=== PATIENT | male | born 1940 | race Caucasian/White ===

== ENCOUNTER → 2019-04-07 | Outpatient (CLI) | payer MEDICARE | END | disposition home or self-care (01) | LOC: LABWHC1 16:48 | PROVIDERS: ATTEND Psychiatry & Neurology Neurology | DX: G95.9 Disease of spinal cord, unspecified (principal); G62.9 Polyneuropathy, unspecified; R53.1 Weakness | CPT/HCPCS: 36415; 82550; 82607; 85652; 86038 ==

== ENCOUNTER → 2019-04-24 | Outpatient (CLI) | payer MEDICARE ==
[2019-04-24 12:05] LABS: Basophils % (A) 0 %; Eosinophils # (A) 0.1 k/uL (0-0.7); Eosinophils % (A) 1 %; HGB 18.1 gm/dL (13.0-17.5); Lymphocytes % (A) 6 %; MCH 31.5 pg (25.0-35.0); MCHC 31.8 g/dL (31.0-37.0); MCV 98.9 fL (80.0-100.0); Mean Platelet Volume 7.3; Monocytes # (A) 0.8 k/uL (0-1.0); Monocytes % (A) 5 %; Neutrophils # (A) 15.4 k/uL (1.3-7.7); Neutrophils % (A) 88 %; Platelet Count 122 k/uL (150-450); RBC 5.76 m/uL (4.30-5.90); RDW 13.8 % (11.5-15.5); WBC 17.6 k/uL (3.8-10.6)
[2019-04-24 12:22] LABS: Calcium 9.6 mg/dL (8.4-10.2); Potassium 4.5 mmol/L (3.5-5.1)
[2019-04-24 12:42] LABS: Mucus,Urine Rare /hpf; RBC,Urine 4 /hpf (0-5); Squamous Epithelial Cell,Urine 1 /hpf (0-4); WBC,Urine 1 /hpf (0-5)
[2019-04-24 12:43] LABS: Appearance,Urine Clear (Clear); Color,Urine Yellow
[2019-04-24 12:44] LABS: Protein,Urine 1+ (Negative)
[2019-04-24 12:47] LABS: Bilirubin,Urine Negative (Negative); Glucose,Urine (UA) Negative (Negative); Ketones,Urine Negative (Negative)
[2019-04-24 12:48] LABS: Blood,Urine Small (Negative); Leukocyte Esterase,Urine Negative (Negative); Nitrite,Urine Negative (Negative)
== END | disposition home or self-care (01) ==
LOC: LABPAT 11:11
PROVIDERS: ATTEND Orthopaedic Surgery Orthopaedic Surgery of the Spine
DX: Z01.812 Encounter for preprocedural laboratory examination (principal); G95.89 Other specified diseases of spinal cord
CPT/HCPCS: 36415; 80048; 81001; 85025; 85610; 85730

== ENCOUNTER → 2019-04-26 | Outpatient (CLI) | payer MEDICARE ==
--- NOTE | 2019-04-26 15:06 | XR ---
EXAMINATION TYPE: XR chest 2V DATE OF EXAM: 04/26/2019 COMPARISON: None INDICATION: Cough congestion short of breath TECHNIQUE: Frontal and lateral views of the chest are obtained. FINDINGS: The heart size is normal. The pulmonary vasculature is normal. The lungs are clear. There is some hyperinflation present. Correlate for COPD. IMPRESSION: 1. No acute pulmonary process. 2. COPD
== END | disposition home or self-care (01) ==
LOC: RADXRMAIN 14:35
PROVIDERS: ATTEND Family Medicine
DX: J44.9 Chronic obstructive pulmonary disease, unspecified (principal); J11.82 Influenza due to unidentified influenza virus with myocarditis
CPT/HCPCS: 71046

== ENCOUNTER → 2019-05-12 | Outpatient (CLI) | payer MEDICARE ==
--- NOTE | 2019-05-12 13:48 | XR ---
EXAMINATION TYPE: XR chest 2V DATE OF EXAM: 05/12/2019 COMPARISON: 04/26/2019 HISTORY: Presurgical examination TECHNIQUE: Frontal and lateral views of the chest are obtained. FINDINGS: There is no focal air space opacity, pleural effusion, or pneumothorax seen. Finding of t he diaphragms on the lateral view suggesting underlying COPD. The cardiac silhouette size is within n ormal limits. Diffuse osseous demineralization. The osseous structures are intact. Moderate multilev el degenerative change of the spine. IMPRESSION: No acute cardiopulmonary process. Findings suggesting underlying COPD.
[2019-05-12 14:51] LABS: Appearance,Urine Clear (Clear); Bilirubin,Urine Negative (Negative); Blood,Urine Negative (Negative); Color,Urine Yellow; Glucose,Urine (UA) Negative (Negative); Hyaline Casts,Urine 1 /lpf (0-2); Ketones,Urine Negative (Negative); Leukocyte Esterase,Urine Trace (Negative); Mucus,Urine Rare /hpf; Nitrite,Urine Negative (Negative); PH, Urine 5.5 (5.0-8.0); Protein,Urine Negative (Negative); RBC,Urine <1 /hpf (0-5); Specific Gravity,Urine 1.015 (1.001-1.035); Urobilinogen,Urine <2.0 mg/dL (<2.0); WBC,Urine 1 /hpf (0-5)
[2019-05-12 15:24] LABS: INR 1.1 (<1.2); Prothrombin Time 11.5 sec (9.0-12.0)
[2019-05-12 15:25] LABS: Calcium 9.8 mg/dL (8.4-10.2); Partial Thromboplastin Time 27.8 sec (22.0-30.0); Potassium 4.8 mmol/L (3.5-5.1)
[2019-05-12 15:27] LABS: Basophils % (A) 0 %; Eosinophils # (A) 0.1 k/uL (0-0.7); Eosinophils % (A) 2 %; HCT 53.4 % (39.0-53.0); HGB 17.7 gm/dL (13.0-17.5); Lymphocytes # (A) 1.6 k/uL (1.0-4.8); Lymphocytes % (A) 21 %; MCH 32.1 pg (25.0-35.0); MCHC 33.1 g/dL (31.0-37.0); Mean Platelet Volume 7.2; Monocytes # (A) 0.6 k/uL (0-1.0); Monocytes % (A) 7 %; Neutrophils # (A) 5.3 k/uL (1.3-7.7); Neutrophils % (A) 68 %; RBC 5.51 m/uL (4.30-5.90); RDW 13.5 % (11.5-15.5); WBC 7.8 k/uL (3.8-10.6)
[2019-05-12 15:33] LABS: Platelet Count 192 k/uL (150-450)
== END | disposition home or self-care (01) ==
LOC: RADXRMAIN 13:16
PROVIDERS: ATTEND Family Medicine
DX: J11.1 Influenza due to unidentified influenza virus with other respiratory manifestations (principal); Z01.812 Encounter for preprocedural laboratory examination; D72.829 Elevated white blood cell count, unspecified
CPT/HCPCS: 71046; 80048; 81001; 83615; 85025; 85610; 85730; 87086

== ENCOUNTER 2019-05-17 08:39 | Day surgery (SDC) | payer MEDICARE ==
[2019-05-15 15:12] VITALS: BMI 26.6
[~2019-05-17 08:39] MED LIST: BACITRACIN 50,000 UNIT, POLYMYXIN B 500,000 UNIT in SODIUM CHLORIDE 0.9% IRRIGATIO 1,00... IRRIGATION ONE; DEXAMETHASONE SOD PHOSPHATE 10 MG/ML 1 ML VIAL IV ONE; HYDROmorphone 0.5 MG/0.5 ML SYRINGE IVP PRN; LIDOCAINE 1% (10MG/ML) FOR IV START INTRADERMA PRN; MIDAZOLAM 2 MG/2 ML VIAL IV PRN; ONDANSETRON 4 MG/2 ML VIAL IVP ONE; SCOPOLAMINE 1.5MG/72HR PATCH TRANSDERM ONE
[2019-05-17] MEDS: LACTATED RINGERS 1,000 ML IV SCH (10:06)
[2019-05-17] MEDS ORDERED: SUCCINYLCHOLINE CHLORIDE 100 MG/5 ML SYR IV ONE (11:58)
[2019-05-17] MEDS ORDERED: LIDOCAINE 1% INJ 10MG/ML (20 ML MDV) ONE (11:58)
[2019-05-17] MEDS ORDERED: PROPOFOL 10 MG/ML 20 ML VIAL IV ONE (11:58)
[2019-05-17] MEDS ORDERED: DEXAMETHASONE SOD PHOS (MDV) 100 MG/10 ML VIAL ONE (11:58)
[2019-05-17] MEDS ORDERED: fentaNYL (PF) 50 MCG/ML 2 ML AMP ONE (11:58)
[2019-05-17] MEDS ORDERED: ONDANSETRON 4 MG/2 ML VIAL ONE (11:58)
[2019-05-17] MEDS ORDERED: ePHEDrine SULFATE/0.9% NACL/PF 50 MG/5 ML SYRINGE IV ONE (11:58)
[2019-05-17] MEDS ORDERED: LIDOCAINE 2%-EPI 1:100,000 20 ML VIAL SQ ONE ×3 (12:30)
[2019-05-17] MEDS ORDERED: BUPIVACAINE (PF) 0.5% 30 ML VIAL SQ ONE ×3 (12:30)
[2019-05-17] MEDS ORDERED: THROMBIN (BOVINE) 5,000 UNIT VIAL TOPICAL ONE (12:30)
[2019-05-17] MEDS ORDERED: GELATIN SPONGE,ABSORB (SMALL) 1 EACH SPONGE TOPICAL ONE (12:30)
--- NOTE | 2019-05-17 13:09 | XR ---
EXAMINATION TYPE: XR cervical spine 1V DATE OF EXAM: 05/17/2019 COMPARISON: NONE HISTORY: Needle placement TECHNIQUE: Single crosstable lateral intraoperative view was performed FINDINGS/IMPRESSION: There is needle localization of the inferior endplate of C4 just above the C4-C5 intervertebral disc space. Patient is intubated. Severe degenerative change of the cervical spine is partially visualized.
[2019-05-17] MEDS ORDERED: LACTATED RINGERS 1,000 ML IV ONE (13:31)
--- NOTE | 2019-05-17 14:10 | XR ---
EXAMINATION TYPE: XR cervical spine 1V DATE OF EXAM: 05/17/2019 COMPARISON: NONE HISTORY: Hardware placement TECHNIQUE: Single crosstable lateral intraoperative view was performed FINDINGS/IMPRESSION: Interval anterior cervical fusion plate has been placed at C3-C5 with interverte bral disc cages. Severe multilevel degenerative disc disease of the cervical spine is again seen. Pos tsurgical prevertebral soft tissue swelling is present and the patient is intubated.
[2019-05-17] MEDS ORDERED: BENZOCAINE/MENTHOL LOZENG 1 EACH LOZENGE MUCOUS MEM PRN (14:23)
[2019-05-17] MEDS ORDERED: ACETAMINOPHEN TAB 325 MG TAB PO PRN (14:23)
[2019-05-17] MEDS ORDERED: HYDROcodone/APAP 5-325MG 1 EACH TAB PO PRN (14:23)
[2019-05-17] MEDS ORDERED: HYDROmorphone 0.5 MG/0.5 ML SYRINGE IVP PRN (14:23)
--- NOTE | 2019-05-17 14:30 | P.OP ---
Date of Procedure: 05/17/19 Preoperative Diagnosis: Cervical myelopathy, severe cervical stenosis C3 4 C4 5, cervical myelomalacia, upper extremity weakness, upper extremity radiculopathy, degenerative disc disease Postoperative Diagnosis: Same Anesthesia: GETA Pathology: none sent Condition: stable Disposition: PACU Description of Procedure: BRIEF OPERATIVE NOTE Preoperative Diagnosis:Cervical myelopathy, severe cervical stenosis C3 4 C4 5, cervical myelomalacia, upper extremity weakness, upper extremity radiculopathy, degenerative disc disease Postoperative Diagnosis:Cervical myelopathy, severe cervical stenosis C3 4 C4 5, cervical myelomalacia, upper extremity weakness, upper extremity radiculopathy, degenerative disc disease Procedure: Anterior cervical decompression with discectomy and fusion C3 4 and C4 5 Removal of large anterior osteophytes Placement of interbody graftC3 4 C4 5 Application of anterior cervical plate C3 4 5 Surgeon: Dr. Palmer Hobber: Jamel MARTINEZ who is present throughout the entire the case persistence during positioning, dissection, exposure, visualization, and all crucial elements of the case as well as closure. Anesthesia: General anesthesia Estimated blood loss: approximately 50 mL Complications: None apparent Components implanted: K2M [place] anterior cervical plate system with screws and Vikos interbody allograft bone graft Disposition: To recovery room in good stable condition. OPERATIVE INDICATIONS The patient has had long-standing issues in their neck and upper extremities. over the past several years he has been having some issues with his upper extremities feeling some sensations of weakness but had not had any aggressive treatment. The patient was having worsening of his issues with weakness in his upper extremity as well as some difficulty with his mobilization ambulation. He had some evidence of cervical myelopathy and had further evaluation with imaging. His MRI imaging showed severe cervical stenosis with changes in his spinal cord with myelomalacia I correlated well with his neck and upper extremity symptoms as well as his myelopathic issues. The patient is having worsening despite conservative treatment. The patient has been through conservative treatment. given the severity of his myelomalacia and stenosis was somewhat likely that the patient would have long-term if not permanent deficits from his spinal cord. We discussed various treatment options including surgery, and the patient wishes to proceed with surgery We discussed the risk, patient's alternatives and benefits of surgery including but not limited to, risk of bleeding risk of infection, risk of need for further surgery, risk of decreased, loss of motion, muscle function, malunion nonunion, hardware failure, nerve damage, paralysis, heart attack, and . OPERATIVE SUMMARY After discussing all the risks, patient alternatives and benefits at length, the patient elected to proceed with surgical intervention, signed informed consent, and presented for their procedure. The patient was seen and examined in the preoperative holding area and the surgical site was marked. The patient was given antibiotics and brought to the operating room. The patient was positioned on the operating room table in a supine position being careful to pad any bony prominences and pressure points. The patient was sedated and intubated by anesthesia in standard fashion. Once the airway and C- spine were stabilized the patient's arms were padded and tucked at her side, with her shoulders gently taped. The head was placed in a donut pad with the neck in good neutral alignment and position. We were careful to maintain the patient's cervical spine and good neutral alignment and position throughout. The patient was prepped and draped in a normal standard fashion. An appropriate timeout and keystone protocol performed. We were able to proceed with the surgery. The local wound area was infiltrated with local anesthetic. An incision was made transversely approximately 2-1/2 cm over the appropriate levels at C4 . Dissection was taken down subcutaneously to the level of the platysma which was split in line with its fibers. Dissection was taken with a carotid approach, with the trachea and esophagus medial and the carotid sheath laterally. We dissected down to the anterior surface of the vertebral bodies. Intraoperative x-ray was taken which showed a marker at the appropriate level of the vertebral body of C4 . With the appropriate level positively confirmed, we were able to proceed with discectomy at the appropriate levels starting at C45 and then removing the C3 4 . All of the operative levels were exposed appropriately. The patient had all their twitches back, and there was no evidence of recurrent laryngeal issue. The wound was copiously irrigated and suctioned dry as had been done periodically throughout the case. there were large anterior cervical osteophytes which had removed particular at C4 5. At the appropriate level/levels of C4 5 and then C3 4, I established an annulotomy with an 11 blade scalpel. A discectomy was performed with a combination of pituitary rongeurs, curettes, a high-speed bur, and Kerrison rongeurs. there was severe's disc degeneration at these levels. The posterior longitudinal ligament was taken down as were any posterior osteophytes. there had been severe stenosis which was remedied with the decompression and discectomy. This gave good central and bilateral foraminal decompression. There is no evidence of any dural tear or leak. The endplates were prepared with a high-speed bur. With the endplates in good parallel position, I was able to size for the appropriate size interbody graft. The wound was irrigated and suctioned dry the graft was prepared and malleted into position. It had good alignment and position with the anterior surface flush with the anterior surface of the vertebral bodies. This was done similarly the appropriate levels first at C4 5 and then at C3 4 . With the grafts intact, I was able to measure and contour and appropriate sized plate. The plate was positioned at the midline over the appropriate levels at C3 4 and 5 . Screw holes were established with a hand drill and drill guide. Screws were placed in good alignment and position with excellent bony purchase. They were seated under the locking device. The construct was checked and found to be stable. Intraoperative x-ray was taken which showed good alignment and position of the implants at the appropriate levels of C3 4 and 5 . There was no evidence of any dural tear or leak. Good hemostasis was maintained. The wound was copiously irrigated and suctioned dry as had been done periodically throughout the case. The platysma was closed with absorbable suture. The subcutaneous tissue was closed. The subcuticular tissue was closed with absorbable suture. The wound was cleaned and dried and dressed appropriately. A soft cervical collar was placed appropriately. The patient was woken up by anesthesia, extubated, transferred back gently to their hospital bed and brought to the recovery room in good stable condition. The patient will be admitted to the hospital for appropriate postoperative care, medical management and monitoring. We will continue to follow them closely about the postoperative course.
[2019-05-17] MEDS: ONDANSETRON 4 MG/2 ML VIAL IVP PRN (18:32)
[2019-05-17] MEDS: SODIUM CHLORIDE 0.9% 1,000 ML IV SCH (19:25)
[2019-05-17] MEDS: SYMBICORT 160-4.5 MCG INHALER INHALATION SCH (20:15)
[2019-05-17] MEDS ORDERED: SERTRALINE 25 MG TAB PO SCH (21:00)
[2019-05-17] MEDS ORDERED: ATORVASTATIN 10 MG TAB PO SCH (21:00)
[2019-05-18] MEDS: SODIUM CHLORIDE 0.9% 1,000 ML IV SCH (04:14)
[2019-05-18] MEDS: ONDANSETRON 4 MG/2 ML VIAL IVP PRN (04:18)
[2019-05-18] MEDS: LACTATED RINGERS 1,000 ML IV SCH (04:22)
[2019-05-18 07:54] VITALS: BP 127/82; PULSE 84; RESP 16; TEMP 98.2
--- NOTE | 2019-05-18 08:02 | P.DS ---
Providers Date of admission: 05/17/19 Attending physician: Munir Palmer Primary care physician: Vanessa [facility] Course: The patient presented on the day of admission as per their operative note. He has significant cervical myelopathy due to his severe stenosis C3 4 C4 5 and underwent anterior cervical decompression with discectomy and fusion C3 4 C4 5 as is operative note states. He says today his shoulders are feeling better. He has been able to get up slightly to the bathroom. He has been voiding freely. He was able to eat last night but did have nausea last night. He says his nausea is resolving this morning. Physical Exam The incision site is clean dry and intact. There is no erythema no drainage. There is no purulence no evidence of infection. He has bruising around the base of his neck which is to be expected. His neck is soft and supple. There is no significant swelling. There is no active drainage at the incision site. Abdomen soft and nontender. Chest has good excursion with deep inspiration and expiration. The patient has active and passive range of motion intact at the upper and lower extremities. There is no acute change in neurologic status. He has use of his hands is moving his arms appropriately. Hospital Course Postoperative day #1 status post anterior cervical decompression with discectomy and fusion C3 4 C4 5 for severe cervical stenosis with cervical myelopathy and myelomalacia with upper extremity radiculopathy and weakness The patient is making progress postoperatively and he feels his shoulders are improving terms of their overall sensation. He feels his motion is adequate and desired. He has not had neurologic loss. The patient has been making good progress postoperatively. The surgical site has some bruising but there is no active drainage and appears to be stable without any significant concern. They have completed the prophylactic antibiotics without any signs or symptoms of infection. The patient has been able to advance their diet, and is tolerating diet adequately. The pain was initially controlled with IV medications and is now controlled appropriately with oral medications. The patient has been able to increase their mobilization. The patient has progressed appropriately. I think they are in good stable condition for discharge today. They will be sent home with appropriate prescriptions. I answered their questions to the best of my ability in a la nguage that they can understand and they are agreeable with the plan. They will follow up as directed In approximately 2 weeks or sooner if he is having problems. Patient Condition at Discharge: Fair Plan - Discharge Summary Discharge Rx Participant: Yes New Discharge Prescriptions: New HYDROcodone/APAP 5-325MG [[place] 5] 1 each PO Q6HR PRN #12 tab PRN Reason: Pain No Action Fluticasone/Salmeterol [Advair 500-50 Diskus] 1 inhalation PO BID Aspirin 0.5 tab PO DAILY Sertraline [Zoloft] 25 mg PO HS Finasteride [Proscar] 5 mg PO DAILY@1200 Cholecalciferol [Vitamin D3 (25 Mcg = 1000 Iu)] 1,000 unit PO DAILY Atorvastatin [Lipitor] 10 mg PO HS Fish Oil/Dha/Epa [Fish Oil 1,200 mg Fish Oil] 1 each PO DAILY Cyanocobalamin (Vitamin B-12) [Vitamin B-12] 1,000 mcg PO MO Discharge Medication List Aspirin 0.5 tab PO DAILY 04/24/19 [History] Atorvastatin [Lipitor] 10 mg PO HS 04/24/19 [History] Cholecalciferol [Vitamin D3 (25 Mcg = 1000 Iu)] 1,000 unit PO DAILY 04/24/19 [History] Cyanocobalamin (Vitamin B-12) [Vitamin B-12] 1,000 mcg PO MO 04/24/19 [History] Finasteride [Proscar] 5 mg PO DAILY@1200 04/24/19 [History] Fish Oil/Dha/Epa [Fish Oil 1,200 mg Fish Oil] 1 each PO DAILY 04/24/19 [History] Fluticasone/Salmeterol [Advair 500-50 Diskus] 1 inhalation PO BID 04/24/19 [History] Sertraline [Zoloft] 25 mg PO HS 04/24/19 [History] HYDROcodone/APAP 5-325MG [[place] 5] 1 each PO Q6HR PRN #12 tab 05/18/19 [Rx] Follow up Appointment(s)/Referral(s): Munir Palmer DO [Doctor of Osteopathic Medicine] - 2 Weeks Activity/Diet/Wound Care/Special Instructions: Keep site clean. May shower with waterproof Tegaderm intact. Do not soak in a tub. After 72 hours postoperatively, patient May remove dressing and then may shower with area uncovered. Leave Steri-Strips intact and allow them to fray off on their own. May ambulate as tolerated. Avoid heavy or rigorous activity. No repetitive bending twisting or lifting. No overhead work.
[2019-05-18] MEDS: SYMBICORT 160-4.5 MCG INHALER INHALATION SCH (08:07)
[2019-05-18] MEDS ORDERED: NON FORMULARY DRUG (Fish Oil/Dha/Epa [Fish Oil 1,200 Mg Fish Oil] 1 EACH) PO SCH (09:00)
[2019-05-18] MEDS ORDERED: ASPIRIN 325 MG TAB PO SCH (09:00)
[2019-05-18] MEDS ORDERED: SENNOSIDES-DOCUSATE SODIUM 1 EACH TAB PO SCH (09:00)
[2019-05-18] MEDS ORDERED: CHOLECALCIFEROL 1,000 UNIT TAB PO SCH (09:00)
[2019-05-18] MEDS ORDERED: FINASTERIDE 5 MG TAB PO SCH (12:00)
[2019-05-22] MEDS ORDERED: CYANOCOBALAMIN 500 MCG TAB PO SCH (12:00)
== END 2019-05-18 11:02 | disposition home or self-care (01) ==
LOC: OR 08:39 → 4SSUR 14:21 → OR 05-18 11:02
PROVIDERS: ATTEND Orthopaedic Surgery Orthopaedic Surgery of the Spine
DX: M50.01 Cervical disc disorder with myelopathy, high cervical region (principal); M50.11 Cervical disc disorder with radiculopathy, high cervical region; M48.02 Spinal stenosis, cervical region; M25.78 Osteophyte, vertebrae; M51.37 Other intervertebral disc degeneration, lumbosacral region; M43.16 Spondylolisthesis, lumbar region; G95.89 Other specified diseases of spinal cord; E66.3 Overweight; M16.11 Unilateral primary osteoarthritis, right hip; I25.10 Atherosclerotic heart disease of native coronary artery without angina pectoris; J43.9 Emphysema, unspecified; E78.5 Hyperlipidemia, unspecified; F17.210 Nicotine dependence, cigarettes, uncomplicated; Z79.51 Long term (current) use of inhaled steroids; Z79.82 Long term (current) use of aspirin; Z79.899 Other long term (current) drug therapy; Z88.8 Allergy status to other drugs, medicaments and biological substances; Z97.3 Presence of spectacles and contact lenses; Z68.27 Body mass index [BMI] 27.0-27.9, adult; Z82.49 Family history of ischemic heart disease and other diseases of the circulatory system; Z83.3 Family history of diabetes mellitus
CPT/HCPCS: 94640 ×2; 86900; 86901; 86850; 72020; 22551; 22552; 22853 ×2; 22845; 22110; 22116; C1713 ×2; C1762 ×2; J0690 ×2; J2405 ×2

== ENCOUNTER 2019-08-03 20:34 | Emergency (ER) | payer MEDICARE ==
[2019-08-03 21:49] LABS: Basophils % (A) 1 %; Eosinophils # (A) 0.2 k/uL (0-0.7); Eosinophils % (A) 2 %; HGB 17.7 gm/dL (13.0-17.5); Lymphocytes # (A) 1.8 k/uL (1.0-4.8); Lymphocytes % (A) 24 %; MCH 31.3 pg (25.0-35.0); MCHC 32.1 g/dL (31.0-37.0); MCV 97.5 fL (80.0-100.0); Mean Platelet Volume 7.7; Monocytes # (A) 0.6 k/uL (0-1.0); Monocytes % (A) 8 %; Neutrophils # (A) 4.8 k/uL (1.3-7.7); Neutrophils % (A) 64 %; Platelet Count 129 k/uL (150-450); RBC 5.65 m/uL (4.30-5.90); RDW 14.1 % (11.5-15.5); WBC 7.5 k/uL (3.8-10.6)
--- NOTE | 2019-08-03 21:49 | ED ---
General Adult HPI - General Chief complaint: Extremity Injury, Lower Stated complaint: Feet Swelling Time Seen by Provider: 08/03/19 20:45 Source: patient, RN notes reviewed, old records reviewed Mode of arrival: wheelchair Limitations: no limitations - History of Present Illness Initial comments: Patient is a pleasant 78-year-old male who presents emergency Department today with complaints of lower feet swelling worsening over the past 2 weeks. He d oes report that his left leg is more swollen. He reports that he's had no significant shortness of breath. He denies any chest pain. He does report Surgery in May and has a more sedentary. He has no history of blood clots. - Related Data Home Medications Medication Instructions Recorded Confirmed Aspirin 0.5 tab PO DAILY 04/24/19 05/17/19 Atorvastatin [Lipitor] 10 mg PO HS 04/24/19 05/17/19 Cholecalciferol [Vitamin D3 (25 1,000 unit PO DAILY 04/24/19 05/17/19 Mcg = 1000 Iu)] Cyanocobalamin (Vitamin B-12) 1,000 mcg PO MO 04/24/19 05/17/19 [Vitamin B-12] Finasteride [Proscar] 5 mg PO DAILY@1200 04/24/19 05/17/19 Fish Oil/Dha/Epa [Fish Oil 1,200 1 each PO DAILY 04/24/19 05/17/19 mg Fish Oil] Fluticasone/Salmeterol [Advair 1 inhalation PO BID 04/24/19 05/17/19 500-50 Diskus] Sertraline [Zoloft] 25 mg PO HS 04/24/19 05/17/19 Previous Rx's Medication Instructions Recorded HYDROcodone/APAP 5-325MG [[place] 5] 1 each PO Q6HR PRN #12 tab 05/18/19 Furosemide [Lasix] 20 mg PO DAILY #5 tab 08/03/19 Allergies Allergy/AdvReac Type Severity Reaction Status Date / Time difluprednate [From Durezol] Allergy increased Verified 08/03/19 20:41 pressure Review of Systems ROS Statement: Those systems with pertinent positive or pertinent negative responses have been documented in the HPI. ROS Other: All systems not noted in ROS Statement are negative. Past Medical History Past Medical History: COPD, Hyperlipidemia, Prostate Disorder History of Any Multi-Drug Resistant Organisms: None Reported Past Surgical History: Appendectomy, Orthopedic Surgery, Prostate Surgery Additional Past Surgical History / Comment(s): neck surgery, Past Psychological History: No Psychological Hx Reported Smoking Status: Current every day smoker Past Alcohol Use History: Rare Past Drug Use History: None Reported General Exam - General Exam Comments Initial Comments: 78 year old male. Limitations: no limitations General appearance: alert, in no apparent distress Head exam: Present: atraumatic, normocephalic, normal inspection Eye exam: Present: normal appearance, PERRL, EOMI. Absent: scleral icterus, conjunctival injection, periorbital swelling ENT exam: Present: normal exam, mucous membranes moist Neck exam: Present: normal inspection. Absent: tenderness, meningismus, lymphadenopathy Respiratory exam: Present: normal lung sounds bilaterally. Absent: respiratory distress, wheezes, rales, rhonchi, stridor Cardiovascular Exam: Present: regular rate, normal rhythm, normal heart sounds. Absent: systolic murmur, diastolic murmur, rubs, gallop, clicks GI/Abdominal exam: Present: soft, normal bowel sounds. Absent: distended, tenderness, guarding, rebound, rigid Extremities exam: Present: normal inspection, full ROM, normal capillary refill, other (left lower extremity swelling ). Absent: tenderness, pedal edema, joint swelling, calf tenderness Back exam: Present: normal inspection, full ROM Neurological exam: Present: alert, oriented X3, CN II-XII intact Psychiatric exam: Present: normal affect, normal mood Skin exam: Present: warm, dry, intact, normal color. Absent: rash Course Vital Signs 08/03/19 20:35 Temperature 98.3 F Pulse Rate 72 Respiratory 18 Rate Blood Pressure 170/88 O2 Sat by Pulse 98 Oximetry Medical Decision Making - Medical Decision Making 78-year-old male presents emergency Department today with 2 weeks of peripheral edema. Has been more sedentary. He does have pitting edema bilaterally worseni ng over the left leg. Normal pulses distally. Denies any shortness of breath or chest pain. Patient's labs are reviewed. Negative troponin. BNP and CMP are unremarkable. Chest x-rays negative for pleural fusion and DVT was not detected on Doppler ultrasound. At this time Patient will be discharged with prescription for JACKELYN anderson advised to follow-up with , mainly concern for lower extremity edema is related to venous insufficiency. I did discuss all CT using a short dose of Lasix to help with fluid overload. Patient is agreeable to treatment plan will comply. - Lab Data Result diagrams: 08/03/19 21:38 08/03/19 21:38 Lab Results 08/03/19 08/03/19 08/03/19 Range/Units 21:38 21:38 21:38 WBC 7.5 (3.8-10.6) k/uL RBC 5.65 (4.30-5.90) m/uL Hgb 17.7 H (13.0-17.5) gm/dL Hct 55.1 H (39.0-53.0) % MCV 97.5 (80.0-100.0) fL MCH 31.3 (25.0-35.0) pg MCHC 32.1 (31.0-37.0) g/dL RDW 14.1 (11.5-15.5) % Plt Count 129 L (150-450) k/uL Neutrophils % 64 % Lymphocytes % 24 % Monocytes % 8 % Eosinophils % 2 % Basophils % 1 % Neutrophils # 4.8 (1.3-7.7) k/uL Lymphocytes # 1.8 (1.0-4.8) k/uL Monocytes # 0.6 (0-1.0) k/uL Eosinophils # 0.2 (0-0.7) k/uL Basophils # 0.0 (0-0.2) k/uL PT 11.6 (9.0-12.0) sec INR 1.1 (<1.2) APTT 27.3 (22.0-30.0) sec Sodium 138 (137-145) mmol/L Potassium 4.4 (3.5-5.1) mmol/L Chloride 108 H (98-107) mmol/L Carbon Dioxide 23 (22-30) mmol/L Anion Gap 7 mmol/L BUN 14 (9-20) mg/dL Creatinine 0.73 (0.66-1.25) mg/dL Est GFR (CKD-EPI)AfAm >90 (>60 ml/min/1.73 sqM) Est GFR (CKD-EPI)NonAf 90 (>60 ml/min/1.73 sqM) Glucose 90 (74-99) mg/dL Plasma Lactic Acid Lai (0.7-2.0) mmol/L Calcium 9.9 (8.4-10.2) mg/dL Magnesium 2.1 (1.6-2.3) mg/dL Total Bilirubin 0.7 (0.2-1.3) mg/dL AST 27 (17-59) U/L ALT 18 (4-49) U/L Alkaline Phosphatase 70 (38-126) U/L Troponin I (0.000-0.034) ng/mL NT-Pro-B Natriuret Pep pg/mL Total Protein 6.9 (6.3-8.2) g/dL Albumin 4.1 (3.5-5.0) g/dL 08/03/19 08/03/19 08/03/19 Range/Units 21:38 21:38 21:38 WBC (3.8-10.6) k/uL RBC (4.30-5.90) m/uL Hgb (13.0-17.5) gm/dL Hct (39.0-53.0) % MCV (80.0-100.0) fL MCH (25.0-35.0) pg MCHC (31.0-37.0) g/dL RDW (11.5-15.5) % Plt Count (150-450) k/uL Neutrophils % % Lymphocytes % % Monocytes % % Eosinophils % % Basophils % % Neutrophils # (1.3-7.7) k/uL Lymphocytes # (1.0-4.8) k/uL Monocytes # (0-1.0) k/uL Eosinophils # (0-0.7) k/uL Basophils # (0-0.2) k/uL PT (9.0-12.0) sec INR (<1.2) APTT (22.0-30.0) sec Sodium (137-145) mmol/L Potassium (3.5-5.1) mmol/L Chloride (98-107) mmol/L Carbon Dioxide (22-30) mmol/L Anion Gap mmol/L BUN (9-20) mg/dL Creatinine (0.66-1.25) mg/dL Est GFR (CKD-EPI)AfAm (>60 ml/min/1.73 sqM) Est GFR (CKD-EPI)NonAf (>60 ml/min/1.73 sqM) Glucose (74-99) mg/dL Plasma Lactic Acid Lai 0.7 (0.7-2.0) mmol/L Calcium (8.4-10.2) mg/dL Magnesium (1.6-2.3) mg/dL Total Bilirubin (0.2-1.3) mg/dL AST (17-59) U/L ALT (4-49) U/L Alkaline Phosphatase (38-126) U/L Troponin I 0.020 (0.000-0.034) ng/mL NT-Pro-B Natriuret Pep 483 pg/mL Total Protein (6.3-8.2) g/dL Albumin (3.5-5.0) g/dL 08/03/19 22:05 EKG showed bradycardia ventricular arrhythmia. Inferior infarct age undetermined. Ventricular rate of 57 bpm. NM interval is 152 ms. Respiration is 98 ms. QT QTc is 402/391 ms. - Radiology Data Radiology results: report reviewed Doppler ultrasound was negative for DVT. Chest x-ray is negative for cardiomegaly or pleural effusion. Disposition Clinical Impression: Peripheral edema, Venous insufficiency Disposition: HOME SELF-CARE Condition: Good Instructions (If sedation given, give patient instructions): Leg Edema (ED) Additional Instructions: Patient advised to follow-up with your primary care physician. Patient should use compression stockings as well as using the short course of diuretic medication. Return to the ED if any alarming signs or symptoms occur. Prescriptions: Furosemide [Lasix] 20 mg PO DAILY #5 tab Is patient prescribed a controlled substance at d/c from ED?: No Referrals: Vanessa Ferrer MD [Primary Care Provider] - 1-2 days Time of Disposition: 23:40
[2019-08-03 21:53] LABS: HCT 55.1 % (39.0-53.0)
[2019-08-03 21:58] LABS: ALT 18 U/L (4-49); AST 27 U/L (17-59); African American GFR (CKD) >90 (>60 ml/min/1.73 sqM); Albumin 4.1 g/dL (3.5-5.0); Alkaline Phosphatase 70 U/L (38-126); Anion Gap 7 mmol/L; Blood Urea Nitrogen 14 mg/dL (9-20); Calcium 9.9 mg/dL (8.4-10.2); Carbon Dioxide 23 mmol/L (22-30); Chloride 108 mmol/L (98-107); Glucose 90 mg/dL (74-99); Magnesium 2.1 mg/dL (1.6-2.3); Non-African American GFR(CKD) 90 (>60 ml/min/1.73 sqM); Potassium 4.4 mmol/L (3.5-5.1); Sodium 138 mmol/L (137-145); Total Bilirubin 0.7 mg/dL (0.2-1.3); Total Protein 6.9 g/dL (6.3-8.2)
[2019-08-03 22:11] LABS: INR 1.1 (<1.2); Partial Thromboplastin Time 27.3 sec (22.0-30.0); Prothrombin Time 11.6 sec (9.0-12.0)
--- NOTE | 2019-08-03 22:37 | US ---
EXAMINATION TYPE: US venous doppler duplex LE LT DATE OF EXAM: 08/03/2019 10:30 PM COMPARISON: NONE CLINICAL HISTORY: edema. Edema left leg x 2 weeks. No hx of DVT. Patient takes aspirin. SIDE PERFORMED: Left TECHNIQUE: The lower extremity deep venous system is examined utilizing real time linear array sonog pipe with graded compression, doppler sonography and color-flow sonography. VESSELS IMAGED: External Iliac Vein (EIV) Common Femoral Vein Deep Femoral Vein Greater Saphenous Vein * Femoral Vein Popliteal Vein Small Saphenous Vein * Proximal Calf Veins (* superficial vessels) Left Leg: No evidence of DVT in veins imaged at this time from prox calf veins to EIV. There appear to be branches of deep femoral vein. Appear compressible. IMPRESSION: No sign of deep vein thrombosis in the left leg.
--- NOTE | 2019-08-03 22:51 | XR ---
EXAMINATION TYPE: XR chest 2V DATE OF EXAM: 08/03/2019 COMPARISON: 05/12/2019 HISTORY: Difficulty breathing TECHNIQUE: FINDINGS: Heart is normal. Lungs are clear of infiltrate. There is mild pulmonary hyperinflation. Tho racic aorta is atheromatous. There are chest leads. There is some spurring in the thoracic spine. IMPRESSION: No active cardiopulmonary disease. Normal heart. No change.
[2019-08-04] VITALS: BP 150/87; PULSE 59; RESP 16; TEMP 98.4
== END 2019-08-04 | disposition home or self-care (01) ==
LOC: EC 20:34
DX: I87.2 Venous insufficiency (chronic) (peripheral) (principal); R60.0 Localized edema; E87.70 Fluid overload, unspecified; J44.9 Chronic obstructive pulmonary disease, unspecified; F17.200 Nicotine dependence, unspecified, uncomplicated; E78.5 Hyperlipidemia, unspecified; Z79.51 Long term (current) use of inhaled steroids; Z79.82 Long term (current) use of aspirin; Z79.899 Other long term (current) drug therapy; Z98.890 Other specified postprocedural states; Z87.430 Personal history of prostatic dysplasia
CPT/HCPCS: 36415; 71046; 80053; 83605; 83735; 83880; 84484; 85025; 85610; 85730; 93005; 99284